=== PATIENT | female | born 1990 | race Caucasian/White ===

== ENCOUNTER 2021-08-22 17:10 | Inpatient (IN) ==
[2021-08-22] MEDS ORDERED: SODIUM CHLORIDE 0.9% 1000ML 1,000 ML IV STA (17:19)
[2021-08-22] MEDS ORDERED: ONDANSETRON INJ 2 MG/ML 2 ML VIAL IV STA ×2 (17:19→19:30)
--- NOTE | 2021-08-22 17:31 | Emergency Department Note ---
History of Present Illness General Chief complaint: Vomiting Stated complaint: GI ISSUES, VOMITING, NAUSEA, HAD COVID 1 MO AGO Time Seen by Provider: 08/22/21 17:17 Source: patient Mode of arrival: ambulatory Limitations: no limitations History of Present Illness This patient is a 30-year-old male who comes in after having nausea vomiting since yesterday she had multiple episodes of vomiting yesterday. No blood or coffee grounds. Her last problem was on Sunday she denies any abdominal discomfort. She has similar episode 2 weeks ago and had unremarkable work-up. Denies chest pain or shortness of breath she did have COVID 1 month ago. Denies headache. She feels slightly dizzy. No focal numbness or weakness denies no vaginal bleed or discharge except for her current normal menstrual period. No dysuria hematuria no back pain no numbness weakness of the legs. She is scheduled to see her primary care for a provider on Sunday for follow- up on her recent ED visit for similar complaints on 08/07. Home Medications Medication Instructions Recorded Confirmed Type ondansetron 4 mg disintegrating 4 mg PO Q6 PRN 08/22/21 08/22/21 History tablet Allergies Allergy/AdvReac Type Severity Reaction Status Date / Time Sulfa (Sulfonamide Allergy Intermediate Hives Verified 08/22/21 18:03 Antibiotics) Past Med/Surg History Medical History No acute medical problems Surgical History No pertinent past surgical history Social History Smoking Status: Never smoker Preferred Language: Malay Feels Safe at Home: Yes Review of Systems A total of 10 systems reviewed and were otherwise negative Physical Exam Vital Signs Vital Signs - 24 hr 08/22/21 17:12 08/22/21 17:45 08/22/21 19:11 Temperature 36.5 C Temperature Source Temporal Artery Scan Pulse Rate 99 H Pulse Rate [Apical] 87 Respiratory Rate 18 16 Respiratory Effort / Characteristics Non-Labored Blood Pressure 124/95 Blood Pressure [Left Arm] 151/103 H Blood Pressure Mean 104 Blood Pressure Mean [Left Arm] 119 Blood Pressure Position Sitting Pulse Oximetry 96 100 Oxygen Delivery Method Room Air Room Air Room Air Sepsis Recent Fever Within 48 Hours No Sepsis New/Unexplained Change in Mental Status No Sepsis Action Taken by Nursing No Action Required 08/22/21 21:00 Temperature Temperature Source Pulse Rate Pulse Rate [Apical] 68 Respiratory Rate 18 Respiratory Effort / Characteristics Blood Pressure Blood Pressure [Left Arm] 140/98 Blood Pressure Mean Blood Pressure Mean [Left Arm] 112 Blood Pressure Position Pulse Oximetry 100 Oxygen Delivery Method Room Air Sepsis Recent Fever Within 48 Hours Sepsis New/Unexplained Change in Mental Status Sepsis Action Taken by Nursing General: Well developed well nourished who appears in no acute distress, b reathing comfortably on room air. Normal speech HEENT: Normal cephalic atraumatic. Pupils are equal round and reactive to light. Extraocular movements are intact. Oropharynx is pink with moist mucous membranes. No swelling of the mouth lips or tongue. Neck: Supple with a midline trachea. No meningeal signs or stiffness, no JVD or bruits. No Stridor. Chest: Clear to auscultation bilaterally. No wheezes or rhonchi. No increased work of breathing. Heart: Regular rate and rhythm without murmurs or gallops. Abdomen: Soft nontender, nondistended without rebound guarding or rigidity. Extremities: No cyanosis clubbing or edema. No calf tenderness or assymetry Spine/Back. Non tender to palpation. No CVA tenderness Skin: Good turgor without rashes. Neurologic exam: Cranial nerves two through 12 are intact. Motor and sensation are intact and symmetrical throughout. Course Administered Medications Discontinued Medications Sodium Chloride (Nss 1000ml) 1,000 mls @ 999 mls/hr IV .Q1H1M STA Stop: 08/22/21 18:19 Last Infusion: 08/22/21 19:06 Dose: 0 mls/hr Documented by: [id number] Admin: 08/22/21 18:05 Dose: 999 mls/hr Documented by: [id number] Promethazine HCl (Phenergan) 12.5 mg in 50.5 mls @ 202 mls/hr IV NOW STA Stop: 08/22/21 19:56 Last Infusion: 08/22/21 20:08 Dose: 0 mls/hr Documented by: [id number] Admin: 08/22/21 19:53 Dose: 202 mls/hr Documented by: [id number] Sodium Chloride (Nss 1000ml) 1,000 mls @ 999 mls/hr IV .Q1H1M ONE Stop: 08/22/21 20:42 Last Infusion: 08/22/21 20:54 Dose: 0 mls/hr Documented by: [id number] Admin: 08/22/21 19:53 Dose: 999 mls/hr Documented by: [id number] Ioversol (Optiray 320 100ml) 88 ml IV ONCE ONE Stop: 08/22/21 20:36 Last Admin: 08/22/21 20:35 Dose: 88 ml Documented by: [id number] Ondansetron HCl (Ondansetron Inj 2 Mg/Ml 2 Ml Vial) 4 mg IV NOW STA Stop: 08/22/21 17:20 Last Admin: 08/22/21 18:05 Dose: 4 mg Documented by: [id number] Ondansetron HCl (Ondansetron Inj 2 Mg/Ml 2 Ml Vial) 4 mg IV NOW STA Stop: 08/22/21 19:31 Last Admin: 08/22/21 19:36 Dose: 4 mg Documented by: [id number] Medical Decision Making Differential Diagnosis Dehydration, electrolyte or metabolic abnormality, pancreatitis, , gallbladder disease, UTI, intra-abdominal process, COVID related complication, infection Medical Records Attestation: I reviewed the patient's medical records. Home Medications Current Medication List: was personally reviewed by me Laboratory Data Attestation: I reviewed the patient's lab results. Result diagrams: 08/22/21 18:00 08/22/21 18:00 Lab Results 08/22/21 08/22/21 08/22/21 Range/Units 18:00 18:00 18:00 WBC 11.89 H (4.8-10.8) K/uL RBC 5.08 (4.2-5.4) M/uL Hgb 15.3 (12.0-16.0) g/dL Hct 44.8 (37-47) % MCV 88.2 (80-100) fL MCH 30.1 (25-34) pg MCHC 34.2 (32-36) g/dL RDW Std Deviation 44.0 (36.4-46.3) fL RDW Coeff of Maria D 13.6 (11.5-14.5) % Plt Count 329 (130-400) K/uL MPV 11.2 H (7.4-10.4) fL Immature Gran % (Auto) 0.2 % Neut % (Auto) 87.0 % Lymph % (Auto) 7.7 % [place] % (Auto) 5.1 % Eos % (Auto) 0.0 % Baso % (Auto) 0.0 % Neut # (Auto) 10.34 H (1.4-6.5) K/uL Lymph # (Auto) 0.92 L (1.2-3.4) K/uL [place] # (Auto) 0.61 H (0.11-0.59) K/uL Eos # (Auto) 0.00 (0-0.5) K/uL Baso # (Auto) 0.00 (0-0.2) K/uL Immature Gran # (Auto) 0.02 (0.00-0.02) K/uL Sodium 139 (136-145) mmol/L Potassium 3.8 (3.5-5.1) mmol/L Chloride 104 (98-107) mmol/L Carbon Dioxide 24 (21-32) mmol/L Anion Gap 11 (3-11) BUN 27 H (6-23) mg/dl Creatinine 0.96 (0.6-1.2) mg/dl Est Cr Clr Drug Dosing 83.4 ml/min Est GFR ( Amer) 92.6 ml/min Est GFR (Non-Af Amer) 79.9 ml/min BUN/Creatinine Ratio 28.1 H (10-20) Glucose 102 H (70-99(Fasting)) mg/dl Calcium 9.9 (8.5-10.1) mg/dl Total Bilirubin 0.8 (0.2-1.0) mg/dl AST 19 (13-39) U/L ALT 25 (7-52) U/L Alkaline Phosphatase 59 (34-104) U/L Total Protein 7.9 (6.0-8.3) gm/dl Albumin 4.8 (3.4-5.0) gm/dl Globulin 3.1 (2.5-4.0) gm/dl Albumin/Globulin Ratio 1.5 (0.9-2) Lipase 10 L (11-82) U/L HCG, Qual Negative (Negative) Imaging Data Radiologist's Impression: Gallbladder Ultrasound 08/22/21 17:26 US gallbladder HISTORY: 30 years-old Female eval for gb acute right upper quadrant abdominal pain COMPARISON: None TECHNIQUE: Multiple real-time sonographic images of the abdominal right upper quadrant were obtained assessing grayscale appearance and color flow FINDINGS: The visualized pancreas is unremarkable. The liver is within normal limits. Normal-appearing gallbladder without cholelithiasis or wall thickening. No pericholecystic edema. Normal common bile duct measures 4 mm. Imaged right kidney is unremarkable without hydronephrosis. IMPRESSION: Unremarkable right upper quadrant abdominal ultrasound. ACT 112: Negative or not required by law. The above report was generated using voice recognition software. It may contain grammatical, syntax or spelling errors. Electronically signed by: Derek Yañez M.D. 08/22/2021 7:25 PM [facility] Narrative This patient comes in as described above. She was placed in room C9. She is here for treatment evaluation of vomiting. She looks well on exam is stable vital signs her abdomen is not significantly tender. I did review her work-up, IV access was established and she was hydrated with 1 L IV normal saline bolus she was given Zofran 4 mg IV and blood work was obtained as well as urinalysis I did order gallbladder ultrasound as well. She was reassessed frequently. Counts mildly elevated but she has no fever or source of infection. Urinalysis shows some blood which is likely from menstrual period but nothing else to suggest infection. She has no significant electrolyte or metabolic abnormalities. Nothing she has liver gallbladder or pancreas disease. test was negative. Gallbladder ultrasound showed needs. When I went back to check on the patient she said she felt worse so I did give her some additional IV Zofran as well as some IV Phenergan and another liter of IV fluids I did discuss doing a CT and explained the risk and the benefit she has not had any imaging of her abdomen recently and she has had no bowel movement for couple days so I wanted to make sure she was not obstructed or had any other intra- abdominal pathology. Her appendix is dilated but there is no evidence of inflammation. This makes the study equivocal. I think it is unlikely appendicitis based on her exam I did consult Dr. La who is a surgeon on-call he came in and saw the patient ED is going to observe her overnight. The patient and her mother who I talked her at length or help with the plan and she will be admitted/observed Impression & Plan Nausea & vomiting, Not currently Discharge Plan Visit Data Chief Complaint: Vomiting Stated Complaint: GI ISSUES, VOMITING, NAUSEA, HAD COVID 1 MO AGO ED Provider: Alfredo Armstrong Discharge Problem: Nausea & vomiting, Not currently Discharge Instructions Interventions: ED Discharge Assessment Last Done: 08/22/21 23:46
[2021-08-22 18:14] LABS: Hematocrit (blood only) 44.8 % (37-47); Hemoglobin 15.3 g/dL (12.0-16.0); Immature Granulocytes # (auto) 0.02 K/uL (0.00-0.02); Immature Granulocytes % (auto) 0.2 %; Lymphocytes # (auto) 0.92 K/uL (1.2-3.4); Lymphocytes % (auto) 7.7 %; Mean Corpuscular Hemoglobin 30.1 pg (25-34); Mean Corpuscular Hgb Conc 34.2 g/dL (32-36); Mean Corpuscular Volume 88.2 fL (80-100); Mean Platelet Volume 11.2 fL (7.4-10.4); Monocytes # (auto) 0.61 K/uL (0.11-0.59); Monocytes % (auto) 5.1 %; Neutrophils # (auto) 10.34 K/uL (1.4-6.5); Platelet Count 329 K/uL (130-400); RDW Coefficient of Variation 13.6 % (11.5-14.5); Red Blood Count 5.08 M/uL (4.2-5.4); White Blood Count 11.89 K/uL (4.8-10.8)
[2021-08-22 18:33] LABS: Albumin Globulin Ratio 1.5 (0.9-2); Albumin Level 4.8 gm/dl (3.4-5.0); BUN Creatinine Ratio 28.1 (10-20); Bilirubin,Total 0.8 mg/dl (0.2-1.0); Calcium 9.9 mg/dl (8.5-10.1); Creatinine Clr Calc Pharmacy 83.4 ml/min; Est GFR (African American) 92.6 ml/min; Est GFR (Non-African American) 79.9 ml/min; Globulin 3.1 gm/dl (2.5-4.0); Potassium 3.8 mmol/L (3.5-5.1); Total Protein 7.9 gm/dl (6.0-8.3)
[2021-08-22 18:39] LABS: Appearance Urine Cloudy (Clear); Bilirubin Urine Negative (Negative); Blood Urine 3+ (Negative); Color Urine Yellow; Epithelial Cell Urine Auto >30 /lpf (0-5); Glucose Urine UA Negative (Negative); Ketones Urine 1+ (Negative); Leukocyte Esterase Urine Negative (Negative); Nitrite Urine Negative (Negative); Protein Urine Trace (Negative); Specific Gravity Urine 1.032 (1.000-1.030); Urobilinogen Urine Negative (Negative); pH Urine 5.5 (4.5-7.5)
[2021-08-22 18:45] LABS: Pregnancy Test, Serum Negative (Negative)
[2021-08-22 18:57] LABS: Mucus Urine Present (None Prsent)
[2021-08-22 18:58] LABS: Bacteria Urine Automated 2+ (Negative); Cast Urine Automated 0 /lpf (0-5); RBC Urine Automated 0-4 /hpf (0-4)
--- NOTE | 2021-08-22 19:27 | Ultrasound Report ---
US gallbladder HISTORY: 30 years-old Female eval for gb acute right upper quadrant abdominal pain COMPARISON: None TECHNIQUE: Multiple real-time sonographic images of the abdominal right upper quadrant were obtained assessing grayscale appearance and color flow FINDINGS: The visualized pancreas is unremarkable. The liver is within normal limits. Normal-appearing gallblad tanisha without cholelithiasis or wall thickening. No pericholecystic edema. Normal common bile duct chava ures 4 mm. Imaged right kidney is unremarkable without hydronephrosis. IMPRESSION: Unremarkable right upper quadrant abdominal ultrasound. ACT 112: Negative or not required by law. The above report was generated using voice recognition software. It may contain grammatical, syntax o r spelling errors. Electronically signed by: Derek Yañez M.D. 08/22/2021 7:25 PM
[2021-08-22] MEDS ORDERED: PROMETHAZINE 12.5 MG/50.5 ML BAG IV STA (19:42)
[2021-08-22] MEDS ORDERED: SODIUM CHLORIDE 0.9% 1000ML 1,000 ML IV ONE (19:42)
[2021-08-22] MEDS ORDERED: OPTIRAY 320 100ml IV ONE (20:35)
--- NOTE | 2021-08-22 22:37 | Surgery Consultation ---
Date of Consultation August 22, 2021 Assessment & Plan (1) Nausea & vomiting: pt is a 30 year-old female who presents to ER with one day history nausea and vomiting, without abdominal pain, IMP: nausea and vomiting, enlarged appendix, plan, I recommend to admit to hospital , conservative treatment, first, NPO, IV fluid, control pain, repeat labs and repeat physical exam in the morning, pt agrees with the plan, I answered all questions, D/W ER attending, History of Present Illness Reason for Consultation: nausea, enlarge appendix Requesting Physician: Alfredo Armstrong MD History of Present Illness Chief complaint: Vomiting Stated complaint: GI ISSUES, VOMITING, NAUSEA, HAD COVID 1 MO AGO Time Seen by Provider: 08/22/21 17:17 Source: patient Mode of arrival: ambulatory Limitations: no limitations History of Present Illness This patient is a 30-year-old male who comes in after having nausea vomiting since yesterday she had multiple episodes of vomiting yesterday. No blood or coffee grounds. Her last problem was on Sunday she denies any abdominal discomfort. She has similar episode 2 weeks ago and had unremarkable work-up. Denies chest pain or shortness of breath she did have COVID 1 month ago. Denies headache. She feels slightly dizzy. No focal numbness or weakness denies no vaginal bleed or discharge except for her current normal menstrual period. No dysuria hematuria no back pain no numbness weakness of the legs. She is scheduled to see her primary care for a provider on Sunday for follow- up on her recent ED visit for similar complaints on 08/07. I ( Mauricio La MD ) got a call for consult enlarge appendix, I reviewed pt's H/P, labs. CT scan with pt and her Mom, pt denies abdominal pain, only nausea and vomiting, no fever, no diarrhea, Home Medications Medication Instructions Recorded Confirmed Type ondansetron 4 mg disintegrating 4 mg PO Q6 PRN 08/22/21 08/22/21 History tablet Allergies Allergy/AdvReac Type Severity Reaction Status Date / Time Sulfa (Sulfonamide Allergy Intermediate Hives Verified 08/22/21 18:03 Antibiotics) Past Med/Surg History Medical History No acute medical problems Surgical History No pertinent past surgical history Social History Smoking Status: Never smoker Preferred Language: Malay Feels Safe at Home: Yes Review of Systems A total of 10 systems reviewed and were otherwise negative Allergies Allergy/AdvReac Type Severity Reaction Status Date / Time Sulfa (Sulfonamide Allergy Intermediate Hives Verified 08/22/21 18:03 Antibiotics) Home Medications Medication Instructions Recorded Confirmed Type ondansetron 4 mg disintegrating 4 mg PO Q6 PRN 08/22/21 08/22/21 History tablet Patient History Medical History No acute medical problems Surgical History No pertinent past surgical history Social History Smoking Status: Never smoker Preferred Language: Malay Feels Safe at Home: Yes Review of Systems Constitutional: as per Subjective / HPI Eyes: as per Subjective / HPI Respiratory: asthma Cardiovascular: as per Subjective / HPI Gastrointestinal: as per Subjective / HPI Genitourinary: as per Subjective / HPI Neurologic: as per Subjective / HPI Psychiatric: as per Subjective / HPI Endocrine: as per Subjective / HPI Hematologic / Lymphatic: as per Subjective / HPI Physical Exam Constitutional: WD/WN, vitals as above no distress Eyes: PERRL, conjunctivae normal, anicteric sclerae Neck: trachea midline, no thyromegaly Respiratory: normal respiratory effort, lungs clear to auscultation Cardiovascular: RRR, no murmur, no edema Gastrointestinal (Abdomen): soft, NT, Nd, BS +. Musculoskeletal: no cyanosis or clubbing, extremities motor strength 5/5 Neurologic: patellar DTR's 2+ bilat, sensation intact Psychiatric: A+Ox3, euthymic affect Results & Data ([facility]) Vital Signs (Past 12 Hours) Vital Signs Temp Pulse Pulse Resp BP BP Pulse Ox 08/22/21 21:00 68 18 140/98 100 08/22/21 19:11 87 16 151/103 H 100 08/22/21 17:12 36.5 C 99 H 18 124/95 96 Laboratory Results Abnormal lab results 08/22/21 08/22/21 08/22/21 Range/Units 18:00 18:00 Unknown WBC 11.89 H (4.8-10.8) K/uL MPV 11.2 H (7.4-10.4) fL Neut # (Auto) 10.34 H (1.4-6.5) K/uL Lymph # (Auto) 0.92 L (1.2-3.4) K/uL [place] # (Auto) 0.61 H (0.11-0.59) K/uL BUN 27 H (6-23) mg/dl BUN/Creatinine Ratio 28.1 H (10-20) Glucose 102 H (70-99(Fasting)) mg/dl Lipase 10 L (11-82) U/L Urine Appearance Cloudy A (Clear) Ur Specific [place] 1.032 H (1.000-1.030) Urine Protein Trace H (Negative) Urine Ketones 1+ H (Negative) Urine Blood 3+ H (Negative) U Epithel Cells (Auto) >30 H (0-5) /lpf Urine Bacteria (Auto) 2+ H (Negative) Urine Mucus Present A (None Prsent) Diagnostic Findings US gallbladder HISTORY: 30 years-old Female eval for gb acute right upper quadrant abdominal pain COMPARISON: None TECHNIQUE: Multiple real-time sonographic images of the abdominal right upper quadrant were obtained assessing grayscale appearance and color flow FINDINGS: The visualized pancreas is unremarkable. The liver is within normal limits. Normal-appearing gallbladder without cholelithiasis or wall thickening. No pericholecystic edema. Normal common bile duct measures 4 mm. Imaged right kidney is unremarkable without hydronephrosis. IMPRESSION: Unremarkable right upper quadrant abdominal ultrasound. ACT 112: Negative or not required by law. CT scan -abd + pelvis, - 1.4 cm appendix, no inflammation , possible early appendicitis,
[2021-08-23] MEDS ORDERED: HYDROmorphone INJ 0.5 MG/0.5 ML SYR IV PRN ×2 (00:09)
[2021-08-23] MEDS ORDERED: PIPERACILLIN/TAZOBACTAM 3.375 GM in DEXTROSE 5% 100 ML IV ONE (00:45)
[2021-08-23] MEDS: D5W AND 1/2NSS + 20MEQ KCL 20 MEQ/1,000 ML BAG IV SCH ×3 (01:46→23:05)
[2021-08-23 06:18] LABS: Hematocrit (blood only) 39.5 % (37-47); Hemoglobin 13.5 g/dL (12.0-16.0); Immature Granulocytes # (auto) 0.03 K/uL (0.00-0.02); Immature Granulocytes % (auto) 0.2 %; Lymphocytes # (auto) 1.06 K/uL (1.2-3.4); Lymphocytes % (auto) 8.4 %; Mean Corpuscular Hemoglobin 30.6 pg (25-34); Mean Corpuscular Hgb Conc 34.2 g/dL (32-36); Mean Corpuscular Volume 89.6 fL (80-100); Mean Platelet Volume 11.1 fL (7.4-10.4); Monocytes # (auto) 0.89 K/uL (0.11-0.59); Monocytes % (auto) 7.1 %; Neutrophils # (auto) 10.57 K/uL (1.4-6.5); Neutrophils % (auto) 84.3 %; Nucleated RBC # (auto) 0.07 K/uL (0-0); Nucleated RBC % (auto) 0.6 %; Platelet Count 309 K/uL (130-400); RDW Coefficient of Variation 13.5 % (11.5-14.5); RDW Standard Deviation 44.4 fL (36.4-46.3); Red Blood Count 4.41 M/uL (4.2-5.4); White Blood Count 12.55 K/uL (4.8-10.8)
[2021-08-23] MEDS: PIPERACILLIN/TAZOBACTAM 3.375 GM in DEXTROSE 5% 100 ML IV SCH ×3 (06:24→22:55)
--- NOTE | 2021-08-23 07:34 | Surgery Progress Note ---
Date of Service August 23, 2021 Assessment & Plan (1) Nausea & vomiting: Plan: pt is a 30 year-old female who presents to ER with one day history nausea and vomiting, without abdominal pain, IMP: nausea and vomiting, enlarged appendix, plan, I recommend to admit to hospital , conservative treatment, first, NPO, IV fluid, control pain, repeat labs and repeat physical exam in the morning, pt agrees with the plan, I answered all questions, D/W ER attending, 08/23/2021, 7:31AM base on enlarged appendix, and high WBC, could not R/O appendicitis, I recommend to do laparoscopic appendectomy, possible open, D/W benefits, risks and alternatives of the surgery, the risks - infection, bleeding, abscess, injury other organs, pt understood, she agrees wit the surgery, I answered all questions, Admission and Anticipated Discharge Date Admission Date: August 22, 2021 Subjective F/u nausea and vomiting, enlarged appendix, pt feels better, no vomiting at night, no significant abdominal pain, no fever, but WBC 12.9 Review of Systems Constitutional: as per Subjective / HPI Eyes: as per Subjective / HPI Respiratory: asthma Cardiovascular: as per Subjective / HPI Gastrointestinal: as per Subjective / HPI Genitourinary: as per Subjective / HPI Neurologic: as per Subjective / HPI Psychiatric: as per Subjective / HPI Endocrine: as per Subjective / HPI Hematologic / Lymphatic: as per Subjective / HPI Physical Exam Constitutional: WD/WN, vitals as above Eyes: PERRL, conjunctivae normal, anicteric sclerae Neck: trachea midline, no thyromegaly Respiratory: normal respiratory effort, lungs clear to auscultation Cardiovascular: RRR, no murmur, no edema Gastrointestinal (Abdomen): soft, no tenderness at RLQ, no diatend, BS +, Musculoskeletal: no cyanosis or clubbing, extremities motor strength 5/5 Neurologic: patellar DTR's 2+ bilat, sensation intact Psychiatric: A+Ox3, euthymic affect Results & Data ([facility]) Vital Signs (Past 12 Hours) Vital Signs Temp Pulse Resp BP Pulse Ox 08/22/21 23:55 37.1 C 59 L 18 142/97 H 97 08/22/21 23:14 58 L 20 157/94 H 98 08/22/21 21:00 68 18 140/98 100 Laboratory Results Abnormal lab results 08/22/21 08/22/21 08/22/21 Range/Units 18:00 18:00 Unknown WBC 11.89 H (4.8-10.8) K/uL MPV 11.2 H (7.4-10.4) fL Neut # (Auto) 10.34 H (1.4-6.5) K/uL Lymph # (Auto) 0.92 L (1.2-3.4) K/uL [place] # (Auto) 0.61 H (0.11-0.59) K/uL Immature Gran # (Auto) (0.00-0.02) K/uL Absolute Nucleated RBC (0-0) K/uL BUN 27 H (6-23) mg/dl BUN/Creatinine Ratio 28.1 H (10-20) Glucose 102 H (70-99(Fasting)) mg/dl Lipase 10 L (11-82) U/L Urine Appearance Cloudy A (Clear) Ur Specific [place] 1.032 H (1.000-1.030) Urine Protein Trace H (Negative) Urine Ketones 1+ H (Negative) Urine Blood 3+ H (Negative) U Epithel Cells (Auto) >30 H (0-5) /lpf Urine Bacteria (Auto) 2+ H (Negative) Urine Mucus Present A (None Prsent) 08/23/21 Range/Units 05:53 WBC 12.55 H (4.8-10.8) K/uL MPV 11.1 H (7.4-10.4) fL Neut # (Auto) 10.57 H (1.4-6.5) K/uL Lymph # (Auto) 1.06 L (1.2-3.4) K/uL [place] # (Auto) 0.89 H (0.11-0.59) K/uL Immature Gran # (Auto) 0.03 H (0.00-0.02) K/uL Absolute Nucleated RBC 0.07 H (0-0) K/uL BUN (6-23) mg/dl BUN/Creatinine Ratio (10-20) Glucose (70-99(Fasting)) mg/dl Lipase (11-82) U/L Urine Appearance (Clear) Ur Specific [place] (1.000-1.030) Urine Protein (Negative) Urine Ketones (Negative) Urine Blood (Negative) U Epithel Cells (Auto) (0-5) /lpf Urine Bacteria (Auto) (Negative) Urine Mucus (None Prsent) Diagnostic Findings CT scan 1.4cm appendix, (1) Nausea & vomiting Vomiting type: unspecified Qualified Code(s): R11.2 - Nausea with vomiting, unspecified
[2021-08-23] MEDS ORDERED: ONDANSETRON INJ 2 MG/ML 2 ML VIAL IV PRN ×2 (08:37→11:07)
--- NOTE | 2021-08-23 10:01 | CT Scan Report ---
CT abd pelvis IV con only CLINICAL HISTORY: nausea, eval for obst TECHNIQUE: Helical axial images of the abdomen and pelvis were obtained and displayed. Automated dose lowering techniques and/or adjustment according to patient size were utilized for this exam. This e xam was performed with intravenous contrast. CT DOSE: 356.73 mGy.cm COMPARISON: None available at the time of this dictation. FINDINGS: Lower chest: No acute abnormality Liver: Focal fatty changes are noted about the falciform ligament. Gallbladder and biliary tree: No calcified gallstones. Normal caliber wall. No intra- or extrahepatic biliary ductal dilation. Pancreas: Unremarkable, no focal lesions. Spleen: Unremarkable. Adrenals: Unremarkable. Kidneys and ureters: Unremarkable. Bladder: Limited evaluation due to underdistention. Reproductive organs: Unremarkable. Bowel: There is questionable fat stranding in the perirectal fat with loss of the fat plane between t he rectum and the uterus. The appendix is normal. No evidence of bowel obstruction is seen. Lymph nodes Retroperitoneal: Unremarkable. Mesenteric: Unremarkable. Pelvic: Unremarkable. Peritoneum: Normal. Vessels: Unremarkable. Abdominal wall: Unremarkable. Bones: Posterior fixation hardware is seen at L5-S1. IMPRESSION: No evidence of bowel obstruction is seen. There is fat stranding about the mid rectum which is nonspe cific but may reflect inflammatory/infectious changes. Malignancy is considered less likely given pat ient age, however follow-up to resolution is recommended. ACT 112: Positive. There are findings on this exam that require communication between the performing entity and the patient following Patient Test Result Information Act ([place] Act 112) guidelines. Electronically signed by: Marty Gilbert M.D. 08/23/2021 9:59 AM
--- NOTE | 2021-08-23 10:59 | Anesthesiology Consultation ---
Date of Service August 23, 2021 Assessment & Plan Chart Review Chart Review: Acceptable Risk for Surgery and Patient NOT seen in Pre Admission Testing Consults Requested none ASA [id number] Proposed Anesthesia Anesthesia Type: General History Surgery Operation Date: 08/23/21 10:00 Proposed Procedures p Laparoscopic Appendectomy - Mauricio La MD Height/Weight Height: 5 ft 4 in Weight: 71.3 kg Allergies Allergy/AdvReac Type Severity Reaction Status Date / Time Sulfa (Sulfonamide Allergy Intermediate Hives Verified 08/22/21 18:03 Antibiotics) Medications Home Medications Medication Instructions Recorded Confirmed Last Taken ondansetron 4 mg disintegrating 4 mg PO Q6 PRN 08/22/21 08/22/21 Unknown tablet Active Medications Generic Name Dose Route Start Last Admin Trade Name Freq PRN Reason Stop Dose Admin Potassium Chloride/Dextrose/Sod Cl 20 meq in 1,000 mls @ 100 mls/hr 08/23/21 01:00 08/23/21 02:20 D5w And 1/2nss + 20meq Kcl IV 09/22/21 00:59 100 mls/hr .Q10H ANNIKA Infusion Protocol Piperacillin Sod/Tazobactam 115 mls @ 28.75 mls/hr 08/23/21 06:00 08/23/21 10:54 Sod 3.375 gm/ Dextrose IV 09/02/21 05:59 Infused Q8H ANNIKA Infusion Protocol Ondansetron HCl 4 mg 08/23/21 08:37 08/23/21 09:06 Ondansetron Inj 2 Mg/Ml 2 Ml Vial IV 09/22/21 08:36 4 mg Q6H PRN Administration Nausea Past Medical History Medical History No acute medical problems Exercise / Class Metabolic Activity II 4-5 Yardwork/Stairs/Walk up hill Past Surgical History Surgical History No pertinent past surgical history Past Anesthesia History No Hx of Anesthesia Complications and No Family Hx of Anesthesia Complications History of PONV No Hx of PONV and No Hx of Motion Sickness Social History Smoking Status: Never smoker Hx Alcohol Use: Yes alcohol intake frequency: holidays/special occasions only Hx Substance Use: No substance use type: does not use Physical Exam Vital Signs Last Vital Signs Temp 36.8 C 08/23/21 07:50 Pulse 57 L 08/23/21 07:50 Resp 16 08/23/21 07:50 BP 112/76 08/23/21 07:50 Pulse Ox 94 08/23/21 07:50 Testing Laboratory Results 08/23/21 05:53 08/22/21 18:00 Urine Color Yellow 08/22/21 Unknown Urine Appearance Cloudy (Clear) A 08/22/21 Unknown Urine pH 5.5 (4.5-7.5) 08/22/21 Unknown Ur Specific [place] 1.032 (1.000-1.030) H 08/22/21 Unknown Urine Protein Trace (Negative) H 08/22/21 Unknown Urine Glucose (UA) Negative (Negative) 08/22/21 Unknown Urine Ketones 1+ (Negative) H 08/22/21 Unknown Urine Nitrite Negative (Negative) 08/22/21 Unknown Ur Leukocyte Esterase Negative (Negative) 08/22/21 Unknown Urine WBC (Auto) 1-5 /hpf (0-5) 08/22/21 Unknown Urine RBC (Auto) 0-4 /hpf (0-4) 08/22/21 Unknown U Hyaline Cast (Auto) 0 /lpf (0-5) 08/22/21 Unknown U Epithel Cells (Auto) >30 /lpf (0-5) H 08/22/21 Unknown Urine Bacteria (Auto) 2+ (Negative) H 08/22/21 Unknown 08/22/21 Unknown Urine Culture - Preliminary Urine,Clean Catch No growth - Less than 1,000 colonies/mL, Final report to follow. Chest X-Ray Date: 08/07/21 Findings: + NAD and + other (mild S-Shaped Scoliosis)
[2021-08-23] MEDS ORDERED: ePHEDrine sulfate 50 MG/ML AMP IV PRN (11:07)
[2021-08-23] MEDS ORDERED: NALOXONE HCL 0.4 MG/1 ML VIAL/CARP IV PRN (11:07)
[2021-08-23] MEDS ORDERED: ATROPINE SULFATE 0.1 MG/ML 10ML SYR IV PRN (11:07)
[2021-08-23] MEDS ORDERED: FLUMAZENIL 0.1 MG/1 ML 10 ML VIAL IV PRN (11:07)
[2021-08-23] MEDS ORDERED: fentaNYL citrate 100 MCG/2 ML VIAL IV PRN (11:07)
[2021-08-23] MEDS ORDERED: PROMETHAZINE HCL 12.5 MG in SODIUM CHLORIDE 0.9% 50 ML IV PRN (11:07)
[2021-08-23] MEDS ORDERED: HYDROmorphone INJ 1 MG/ML SYRINGE IV PRN (11:07)
[2021-08-23] MEDS ORDERED: ONDANSETRON INJ 2 MG/ML 2 ML VIAL ONE (11:22)
[2021-08-23] MEDS ORDERED: LIDOCAINE 2% 2 ML VIAL/AMP(20MG/ML) INFIL ONE (11:22)
[2021-08-23] MEDS ORDERED: DEXAMETHASONE SOD INJ 4 MG/ML VIAL ONE (11:22)
[2021-08-23] MEDS ORDERED: PROPOFOL IV EMULSION 10 MG/ML 20 ML VIAL IV ONE (11:22)
[2021-08-23] MEDS ORDERED: fentaNYL citrate 100 MCG/2 ML VIAL ONE ×2 (11:24→12:22)
[2021-08-23] MEDS ORDERED: MIDAZOLAM HCL 1 MG/ML 2ML VIAL ONE (11:24)
--- NOTE | 2021-08-23 11:26 | History & Physical Bridge Note ---
Date of Service August 23, 2021 History & Physical Bridge Note I have examined the patient, reviewed the History & Physical and in the interval since the performance of the History & Physical I have noted the following changes of clinical significance: no changes noted
[2021-08-23] MEDS: PANTOprazole 40 MG in SYRINGE 0 ML IV SCH (11:31)
[2021-08-23] MEDS ORDERED: BACITRACIN OINT 15 GM TUBE ONE (11:42)
[2021-08-23] MEDS ORDERED: BUPIVACAINE 0.5 % 5 MG/1 ML MPF 30ML VIAL ONE (11:42)
[2021-08-23] MEDS ORDERED: LIDOCAINE 1% LOCAL 20 ML VIAL ONE (11:42)
[2021-08-23] MEDS ORDERED: ROCURONIUM BROMIDE 10 MG/ML 5 ML VIAL IV ONE (12:21)
[2021-08-23] MEDS ORDERED: GLYCOPYRROLATE 0.2 MG/ML VIAL ONE (12:34)
[2021-08-23] MEDS ORDERED: NEOSTIGMINE METHYLSULFATE 1 MG/ML 10ML VIAL ONE (12:34)
--- NOTE | 2021-08-23 12:38 | Post Operative Brief Note ---
Immediate Post Op Note v1 Date of Surgery August 23, 2021 Pre & Post Diagnosis Operation Date: 08/23/21 10:00 Pre-Op Diagnosis: VOMITING,LOWER ABDOMINAL PAIN, acute appendicitis Post-Op Diagnosis: VOMITING,LOWER ABDOMINAL PAIN, acute appendicitis I identified the patient and participated in the time-out.: Yes Procedure Operation Date: 08/23/21 10:00 Actual Procedures p Laparoscopic Appendectomy - Mauricio La MD Surgeon Mauricio La MD Parks Re[employer] Director MANNY Garner Estimated Blood Loss 10 Findings Consistent with Post-Op Diagnosis Fluids 600ml Specimens appendix Anesthesia Type General Complications none Disposition Accompanied Patient To Recovery: Yes
--- NOTE | 2021-08-23 13:22 | Anesthesiology Progress Note ---
Date of Service August 23, 2021 Anesthesia Post Procedure Vital Signs Vital Signs: Temp Pulse Pulse Resp BP BP Pulse Ox 08/23/21 13:20 54 L 15 137/89 99 08/23/21 13:10 57 L 12 136/96 100 08/23/21 13:00 36.0 C L 69 18 127/98 100 08/23/21 10:53 37 C 60 18 126/86 97 08/23/21 07:50 36.8 C 57 L 16 112/76 94 08/22/21 23:55 37.1 C 59 L 18 142/97 H 97 08/22/21 23:14 58 L 20 157/94 H 98 08/22/21 21:00 68 18 140/98 100 08/22/21 19:11 87 16 151/103 H 100 08/22/21 17:12 36.5 C 99 H 18 124/95 96 Transfer of Care Handoff Completed per policy Notes Mental Status: alert / awake / arousable Patient Amnestic to Procedure: Yes Nausea / Vomiting: adequately controlled Pain: adequately controlled Airway Patency, RR, SpO2: stable & adequate BP & HR: stable & adequate Hydration State: stable & adequate Anesthetic Complications: no major complications apparent
[2021-08-23] MEDS ORDERED: ACETAMINOPHEN 325 MG TAB PO PRN (13:55)
[2021-08-23] MEDS ORDERED: oxyCODONE/ACETAMINOPHEN 5mg/325mg TAB PO PRN (13:55)
[2021-08-23] MEDS ORDERED: ONDANSETRON 4 MG OD TAB PO PRN (13:55)
--- NOTE | 2021-08-23 13:55 | Operative Report (OR) ---
DATE OF SERVICE: 08/23/2021. PREOPERATIVE DIAGNOSIS: Acute appendicitis. POSTOPERATIVE DIAGNOSIS: Acute appendicitis. OPERATION: Laparoscopic appendectomy. SURGEON: Mauricio La MD. SALESPERSON WOMEN'S HATS: Svetlana Schuster PA-C. ANESTHESIA: General. ESTIMATED BLOOD LOSS: About 10 mL. FINDINGS: Acute appendicitis. COMPLICATIONS: None. INDICATIONS FOR THE PROCEDURE: This is a 30-year-old female who presented to the hospital with nause a, vomiting, and abdominal pain. The patient had a CT scan diagnosis of early acute appendicitis. I recommended to do laparoscopic appendectomy, possible open. I did talk to the patient about the marcie efit, risk, alternate procedure. I indicated the risks may include, but not limited to, such as blee ding, infection, injury to other organs, abscess, bowel obstruction, incisional hernia. The patient understands. She signed informed consent and I answered all questions. DETAILS OF PROCEDURE: After we identified the patient and verified the procedure, we brought the pat ient to the OR, put the patient in the supine position on the OR table. The patient received SCD on bilateral legs to prevent DVT. Also, patient received 2 grams of cefoxitin IV for prophylactic antib iotic. The patient received general anesthesia without difficulty. The abdomen was prepped and drap ed in a routine sterile fashion. After timeout, I injected the local anesthesia by using 1% lidocain e mixed with 0.5% Marcaine just above the umbilicus. Then I made a small incision just above the umbi licus, opened fascia, opened peritoneum. Under direct vision, put a Kapil trocar in, connected to C O2 to create pneumoperitoneum, flow rate at 6 liters per minute, pressure not more than 14 mmHg. Once we got a nice pneumoperitoneum, we put a camera in, looked around the abdomen, it showed normal finding on the small bowel and large bowel; however, the appendix is enlarged with inflammation, conf irming the diagnosis of acute appendicitis. Once we confirmed the diagnosis, we put another two 5 mm trocars in the left lower quadrant area. Once all trocars in, we used the grasper to hold the appen claudia and used the Harmonic to take down the appendiceal, rechecked, no active bleeding. Then, we used a 45 mm Endo-VALENTINO stapler for transection on the base of appendix, rechecked, the staple line intact, no leak and no active bleeding. Then, we removed the appendix through the catch bag. Then, we reinserted the Kapil trocar in, connected to CO2 to create pneumoperitoneum, again looked a round the abdomen. Staple line intact. No active bleeding and no leak from the staple line. Then, we removed all trocars under direct vision. No active bleeding from the trocar site. Pneumoperitone um was released. Then I closed the umbilical incision fascial layer by using 0 Vicryl [id number] x2, closed subcutaneous layer by using 2-0 Vicryl interruptedly, closed skin by using 4-0 Vicryl co ntinuous running, closed another two 5 mm trocar site of skin only by using 4-0 Vicryl. Then, we put the dressing on. The patient tolerated the procedure well. All instrument, needle and sponge counts were correct x2 a t the end of the case. The patient was transferred to recovery room in stable condition. The specim en was sent to pathology. After the procedure, I did talk to the patient and patient's family member about the OR finding and the procedure we did, they understand. The assistant director of plant operations, Svetlana, is necessary for this procedure. Her role was to hold the camera and r etraction and exposure. Job ID: [id number]
[2021-08-24] MEDS: PIPERACILLIN/TAZOBACTAM 3.375 GM in DEXTROSE 5% 100 ML IV SCH ×2 (06:06→13:15)
[2021-08-24 08:38] LABS: Basophils # (auto) 0.01 K/uL (0-0.2); Basophils % (auto) 0.1 %; Eosinophils # (auto) 0.02 K/uL (0-0.5); Eosinophils % (auto) 0.2 %; Hematocrit (blood only) 39.6 % (37-47); Hemoglobin 13.1 g/dL (12.0-16.0); Immature Granulocytes # (auto) 0.01 K/uL (0.00-0.02); Immature Granulocytes % (auto) 0.1 %; Lymphocytes # (auto) 2.27 K/uL (1.2-3.4); Lymphocytes % (auto) 25.8 %; Mean Corpuscular Hemoglobin 29.8 pg (25-34); Mean Corpuscular Hgb Conc 33.1 g/dL (32-36); Mean Corpuscular Volume 90.2 fL (80-100); Mean Platelet Volume 11.5 fL (7.4-10.4); Monocytes # (auto) 0.97 K/uL (0.11-0.59); Neutrophils # (auto) 5.52 K/uL (1.4-6.5); Neutrophils % (auto) 62.8 %; Platelet Count 221 K/uL (130-400); RDW Coefficient of Variation 13.6 % (11.5-14.5); RDW Standard Deviation 44.9 fL (36.4-46.3); Red Blood Count 4.39 M/uL (4.2-5.4)
[2021-08-24 08:42] LABS: Alanine Aminotransferase 20 U/L (7-52); Albumin Globulin Ratio 1.4 (0.9-2); Albumin Level 3.6 gm/dl (3.4-5.0); Alkaline Phosphatase 40 U/L (34-104); BUN Creatinine Ratio 12.7 (10-20); Blood Urea Nitrogen 9 mg/dl (6-23); Calcium 8.3 mg/dl (8.5-10.1); Carbon Dioxide 20 mmol/L (21-32); Chloride 106 mmol/L (98-107); Creatinine Clr Calc Pharmacy 113.2 ml/min; Est GFR (African American) 133.4 ml/min; Est GFR (Non-African American) 115.1 ml/min; Globulin 2.6 gm/dl (2.5-4.0); Glucose 103 mg/dl (70-99(Fasting)); Total Protein 6.2 gm/dl (6.0-8.3)
[2021-08-24] MEDS: D5W AND 1/2NSS + 20MEQ KCL 20 MEQ/1,000 ML BAG IV SCH (08:42)
--- NOTE | 2021-08-24 08:50 | Discharge Summary ---
Date of Service August 24, 2021 Admission HPI Per Admitting Provider I ( Mauricio La MD ) got a call for consult enlarge appendix, I reviewed pt's H/P, labs. CT scan with pt and her Mom, pt denies abdominal pain, only nausea and vomiting, no fever, no diarrhea, Principal Diagnosis Abnormal , enlarged appendix nausea and vomiting Discharge Exam Constitutional WD/WN, vitals as above not ill appearing Neck normal visual inspection and trachea midline Respiratory normal respiratory effort; no respiratory distress Gastrointestinal (Abdomen) Inspection/Auscultation: abdomen normal to inspection, normal bowel sounds and + abdominal surgical incision (covered with clean and dry dressings); abdomen not distended Percussion/Palpation: + abdomen tender (at incision sites appropriate postop) and abdomen soft; no guarding and abdomen not rigid Skin no rashes, warm and dry Psychiatric A+Ox3, euthymic affect Discharge Data Allergies Allergy/AdvReac Type Severity Reaction Status Date / Time Sulfa (Sulfonamide Allergy Intermediate Hives Verified 08/22/21 18:03 Antibiotics) Consultations 08/22/21 22:37 ED Decision to Admit Stat Procedures Performed Operation Date: 08/23/21 10:00 Actual Procedures p Laparoscopic Appendectomy - Mauricio La MD Ordered Studies 08/22/21 17:26 US gallbladder Stat 08/22/21 19:42 CT abd pelvis IV con only Urgent Hospital Course (1) Nausea & vomiting: Patient was admitted to hospital from emergency department for observation and labs repeated in the am. Leukocytosis still persisted along with nausea and vomiting so decision was made to proceed with laparoscopic appendectomy. Patient found to have acute appendicitis without perforation or abscess. Tolerated procedure well and was transferred to recovery then to medical/surgical floor for postop care. Diet advanced to clear liquids, activity as tolerated, IV and oral pain medication as needed, incentive spirometry and scds. POD # 1, afebrile, vss, preoperative pain and nausea and vomiting resolved. Postop pain at incision sites mild and controlled. Tolerating clear liquids. Patient was discharged home on POD # 1 in stable condition. Total Time Total Time Spent Total Time Spent (In Minutes): 30 minutes Total Time Includes: Examination of the Patient, Discharge Planning and Medication Reconciliation Discharge Plan Discharge Items Patient Disposition: Home - Self-Care Reason For Visit: VOMITING,LOWER ABDOMINAL PAIN Discharge Diagnosis: Acute appendicitis Activity: Per Instructions section Non-emergency contact: Primary Care Provider and Surgeon Call non-emergency contact if: you have any medication questions, your pain is not controlled, your pain is worsening, your pain is concerning for you, you have a fever, your temperature is above 101, your wound has increased redness, your wound has increased drainage and your wound pain has increased Follow-up/Referrals: Braden Mark MD [Primary Care Provider] - Mauricio La MD [Physician] - 09/06/21 1:00 pm (Follow-up surgery office in 2 weeks) Diet: Regular Addtl Attending Provider Instructions: Post-Surgical ~Discharge Instructions Activity Recommendations: - lifting limitation: (20 pounds for 4 weeks), - exercise/sex/sports limit: (nonstrenuous for 2 weeks), - driving or machine use limit: (none for 1 week or until pain free and no longer taking narcotic pain medication), - Shower/bathe limit: (june shower beginning Sunday) Diet: - Resume previous diet SPECIAL CARE INSTRUCTIONS: - May shower on Sunday. Sponge bath and wash hair in meantime. On Sunday, remove outer dressings and let water run over area and pat dry. - Leave steri strips on for one week and then remove. - Call the surgeon's office with any questions or concerns - - (ex. temperature higher than 101 degrees F, excessive bleeding or pain). MEDICATIONS: - Resume previous medications unless instructed otherwise by your surgeon. - May alternate extra strength Tylenol and Ibuprofen as needed for mild to moderate pain -650 mg Tylenol every 6 hours as needed - Ibuprofen 600 mg every 6 hours as needed (take with food) - Percocet 1 every 6 hours, as needed for moderate to severe pain - Recommend daily stool softener (Colace) while taking narcotic pain medication to prevent constipation or straining. Drink plenty of water daily. FOLLOW UP VISIT: - If not already scheduled, please call the office to schedule a two week follow-up appointment. Office number Pending Studies at Discharge: Yes (pathology, will be reviewed at follow-up visit) Stand-Alone Forms: My [facility]_AID, Work/School Release, Smoking Cessation Medications and DC Order Prescriptions: New oxycodone-acetaminophen 5-325 mg tablet 1 tab PO Q6H PRN (Reason: pain) Qty: 5 RF: 0 Continued ondansetron 4 mg tablet,disintegrating 4 mg PO Q6 PRN (Reason: NAUSEA/VOMITING) RF: 0 Discharge Orders: Discharge Order (Routine); Ordered 08/24/21 Ordered By: Svetlana Schuster Admission Data Admit Date/Time: 08/22/21 22:27 Attending Provider: Mauricio La Admit Provider: Mauricio La Primary Care Provider: Braden Mark Other Providers: Mauricio La
[2021-08-24 10:06] LABS: Potassium 4.9 mmol/L (3.5-5.1)
[2021-08-24] MEDS: PANTOprazole 40 MG in SYRINGE 0 ML IV SCH (11:25)
== END 2021-08-24 17:24 | disposition home or self-care (01) | DRG 343 ==
LOC: ED 17:10 → 3N 22:27